=== PATIENT | female | born 1995 | race Caucasian/White ===

== ENCOUNTER 2018-03-06 13:53 | Emergency (ER) | payer SELFPAY ==
[2018-03-06 13:55] VITALS: BP 131/70; PULSE 104; RESP 17; TEMP 36.8; O2SAT 96; BMI 30.7
[2018-03-06] MEDS: 0.9% Normal Saline 1,000 ML 999 ML IV (14:29)
--- NOTE | 2018-03-06 14:29 | ED.DCSUM_ITS ---
- ER Visit Summary Date of Service: 03/06/18 Chief Complaint: [] Runny nose harsh cough diarrhea for a few days History of Present Illness: The patient is a 23 F [] she reports she was developed runny nose harsh cough and diarrhea a few days ago her symptoms are persisted towards having copious diarrhea has a harsh cough that she cannot get rid of, no fevers no chest pain no abdominal pain does not believe she is is not missed. She has no past history is on no meds no obvious exposures to anyone who is been ill or tainted food Physical Examination: [] She has copious rhinorrhea she has a harsh dry cough her lungs reveal wheezing in all areas she is in no distress when she is not coughing speaking full sentences the throat is unremarkable the abdomen soft nontender upper lower extremities unremarkable neurologic she is awake moving all 4 Test Results: [] Emergency Department Course and Treatment: [] Given her complaints she is treated with IV fluids aerosols Afrin nasal spray screening labs DuoNeb IV fluids is feeling much better she is coughing less she has had no diarrhea she is taking p.o. fluids in the department her studies are all generally unremarkable, her UA shows signs of contamination, please see those reports Her improvement the plan will be discharged home on Afrin Flonase Mucinex she is to force fluids related to diarrhea and follow with her family doctor return for change in symptoms Treatment Plan: [] Disposition: [] Home stable Impression: [] URI with harsh cough and diarrhea improved This note was generated with [employer] dictation software. It may contain incorrect words, spelling, and punctuation that were not noted in review of the chart prior to signing ED Disposition - Plan for ED Patient: Chief Complaint: General Illness Instructions: ED Upper Resp Infec No Abx Tx Prescriptions: Albuterol Inhaler [Ventolin Hfa] 2 puff INHALATION Q4H PRN PRN #1 inhaler PRN Reason: Wheezing Fluticasone Propionate [Flonase Allergy Relief] 15.8 ml NS BID #1 spray.susp Guaifenesin [Mucinex] 1,200 mg PO BID #14 tbmp.12hr Referrals: Care Physician,No Primary [Primary Care Provider] -
[2018-03-06 14:39] LABS: Absolute Lymphocyte Count 1.15 X10^3/ul (0.83-4.51); Absolute Neutrophil Count 3.2 X10^3/uL (2.0-7.7); Basophil# 0.01 X10^3/uL; Basophil% 0.2 % (0-1); Eosinophil# 0.19 X10^3/uL; Eosinophils% 3.8 % (0-5); Hematocrit 47.2 % (37-47); Hemoglobin 15.8 g/dl (12.0-15.0); Lymphocyte # 1.15 X10^3/ul (4.0); Mean Corp Hgb Conc 33.5 g/gl (32-36); Mean Corpuscular Hgb 29.1 pg (27.0-32.0); Mean Corpuscular Volume 86.9 fL (81-99); Mean Platelet Vol. 10.9 fl (6.2-12.0); Neutrophil # 3.24 X10^3/uL (2.7-7.7); Neutrophil % 64.8 % (47-70); Platelet Count 198 K/mm3 (150-450); RBC Distribution Width CV 13.2 % (11.6-14.6); Red Blood Count 5.43 M/mm3 (4.2-5.4)
--- NOTE | 2018-03-06 14:40 | RAD_ITS ---
STUDY: X-RAY CHEST REASON FOR EXAM: Female, 23 years old. Cough TECHNIQUE: Portable AP COMPARISON: None. FINDINGS: The lungs are clear and expanded. There is no demonstrated pleural abnormality. Normal size heart. Normal mediastinum and everton. Normal visualized pulmonary arteries. Normal visualized aortic arch and descending thoracic aorta. Normal visualized thoracic spine. Normal visualized ribs, clavicles, and shoulders. There is no demonstrated abnormality of the visualized soft tissue structures of the upper abdomen. RAD/Chest 1 View (Portable) IMPRESSION: No acute cardiopulmonary process. Electronically Signed: Jessica Ellsworth MD at 15:37 EDT Tel , Service support ,
[2018-03-06 14:42] VITALS: PULSE 68; RESP 18
[2018-03-06] MEDS: Ipratropium/Albuterol Sulfate 3 ML AMPUL.NEB INHALATION (14:42)
[2018-03-06 14:46] LABS: POSITIVE COUNT NO; POSITIVE DIFFERENTIAL NO; POSITIVE MORPHOLOGY NO
[2018-03-06 14:51] LABS: Anion Gap 7 (5-15); BUN 14 mg/dL (7-18); BUN/Creat Ratio 18.2 RATIO (10-20); Calcium,Total 8.5 mg/dL (8.5-10.1); Chloride 107 mmol/L (98-107); Creatinine, Serum 0.77 mg/dL (0.55-1.02); EST Glomerular Filtration Rate 99 mL/min (>60); Est Glom Filt Rate - Afr Amer 120 mL/min (>60); Estimated Creatinine Clearance 102.25 ml/min; Glucose 99 mg/dL (74-106); Potassium 3.8 mmol/L (3.5-5.1); Sodium Level 139 mmol/L (136-145)
[2018-03-06 15:05] LABS: Pregnancy, Serum, hCG Quali. NEGATIVE Negative (0-9 Nonpreg)
[2018-03-06 15:23] LABS: Red Blood Cells-Urine 0 SEEN /hpf (0-5)
[2018-03-06 15:25] LABS: Color, Urine Amber (Yellow); Glucose, Dipstick Normal (Normal); Ketone-Dipstick 5 mg/dl (Negative); Leukocyte Esterase-Dipstick 100 /ul (Negative); Nitrite-Dipstick Negative (Negative); Occult Blood-Urine 10 /ul (Negative); Protein-Dipstick 30 mg/dl (Negative); Specific Gravity, Urine 1.015 (1.002-1.030); Urine Clarity Clear (Clear); Urine Urobilinogen Normal (Normal)
[2018-03-06 15:26] LABS: Urine Bilirubin Dipstick 1 mg/dL (Negative)
[2018-03-06 15:36] LABS: Squamous Epithelial Cells - UA 5-10 SEEN /hpf (5-10); White Blood Cells 0-5 SEEN /hpf (0-5)
--- NOTE | 2018-03-06 15:36 | ED.DEP ---
ED Disposition - Plan for ED Patient: Chief Complaint: General Illness Instructions: ED Upper Resp Infec No Abx Tx Prescriptions: Albuterol Inhaler [Ventolin Hfa] 2 puff INHALATION Q4H PRN PRN #1 inhaler PRN Reason: Wheezing Fluticasone Propionate [Flonase Allergy Relief] 15.8 ml NS BID #1 spray.susp Guaifenesin [Mucinex] 1,200 mg PO BID #14 tbmp.12hr Referrals: Care Physician,No Primary [Primary Care Provider] -
[2018-03-06 15:37] LABS: Bacteria RARE /hpf (None Seen); Mucous, Urine 1+ /hpf (<or=2+)
[2018-03-06 15:52] VITALS: BP 118/90; PULSE 67; RESP 16; O2SAT 99
[2018-03-06 15:56] VITALS: BP 118/68; PULSE 68; RESP 16; O2SAT 99
== END 2018-03-06 15:58 | disposition home or self-care (01) ==
LOC: ED 14:25
PROVIDERS: Emergency Provider Emergency Medicine
DX: J06.9 Acute upper respiratory infection, unspecified (principal); R19.7 Diarrhea, unspecified; Z72.0 Tobacco use
CPT/HCPCS: 71045; 80048; 81001; 84703; 85025; 94640; 96360; 96361; 99283; J7030; J7040